=== PATIENT | male | born 1940 | race Caucasian/White ===

== ENCOUNTER 2017-05-23 07:08 | Day surgery (SDC) | payer OTHER ==
[2017-05-23] MEDS ORDERED: diphenhydrAMINE 25 MG CAP PO ONE ×2 (07:12→07:28)
[2017-05-23] MEDS ORDERED: FAMOTIDINE 20 MG TAB PO ONE (07:12)
[2017-05-23] MEDS ORDERED: NS 1,000 ML IV ONE (07:12)
[2017-05-23] MEDS ORDERED: ASPIRIN EC 325 MG TAB PO ONE ×2 (07:12→07:28)
[2017-05-23] MEDS ORDERED: DIAZEPAM 5 MG TAB PO ONE (07:12)
[2017-05-23] MEDS ORDERED: DIAZEPAM 5 MG TAB ONE (07:28)
[2017-05-23] MEDS ORDERED: FAMOTIDINE 20 MG TAB ONE (07:28)
--- NOTE | 2017-05-23 07:33 | CPEKG ---
Heart Rate: 64 RR Interval: 938 P-R Interval: 156 QRSD Interval: 98 QT Interval: 428 QTC Interval: 442 P Hansen: 84 QRS Hansen: -40 T Wave Hansen: 62 EKG Severity - ABNORMAL ECG - EKG Impression: SINUS RHYTHM EKG Impression: LEFT AXIS DEVIATION EKG Impression: LOW VOLTAGE IN FRONTAL LEADS Electronically Signed By: Sesar Lipscomb 24-May-2017 12:05:16
[2017-05-23 07:53] LABS: % IMMATURE GRANULYOCYTES 0.2 % (0.0-1.1); ABSOLUTE IMMATURE GRANULOCYTES 0.01 10^3/uL (0.00-0.10); ADD DIFF? NO; ADD MORPH? NO; ADD SCAN? NO; ATYPICAL LYMPHOCYTE FLAG 10 (0-99); FRAGMENT RBC FLAG 0 (0-99); HEMATOCRIT 42.2 % (40.0-51.0); HEMOGLOBIN 13.8 g/dL (13.7-17.5); LEFT SHIFT FLG 0 (0-99); LIPEMIA HEMOLYSIS FLAG 80 (0-99); MEAN CELL HEMOGLOBIN 30.6 pg (27.9-34.1); MEAN CELL HEMOGLOBIN CONCENTR. 32.7 g/dL (32.4-36.7); MEAN CELL VOLUME 93.6 fL (81.5-99.8); MEAN PLATELET VOLUME 9.9 fL (8.7-11.7); PLATELET CLUMPS FLAG 0 (0-99); PLATELET COUNT 184 10^3/uL (150-400); RED BLOOD CELL COUNT 4.51 10^6/uL (4.40-6.38); RED CELL DISTRIBUTION WIDTH 14.4 % (11.5-15.2)
[2017-05-23 07:57] LABS: INR 1.15 (0.83-1.16); PROTIME(PATIENT) 14.6 SEC (12.0-15.0)
[2017-05-23 07:59] LABS: ANION GAP 11 mEq/L (8-16); CALCIUM 9.2 mg/dL (8.5-10.4); CARBON DIOXIDE 23 mEq/l (22-31); CHLORIDE 111 mEq/L (97-110); CHOLESTEROL 130 mg/dL (140-220); CHOLESTEROL/HDL RATIO 1.91 RATIO (1.00-4.97); CREATININE 0.9 mg/dL (0.7-1.3); GLOMERULAR FILTRATION RATE > 60; GLUCOSE 96 mg/dL (70-100); HIGH DENSITY LIPOPROTEIN 68 mg/dL (40-65); LDL/HDL RATIO 0.75 RATIO (1.00-3.64); LOW DENSITY LIPOPROTEIN 51 mg/dL (80-100); MAGNESIUM 1.8 mg/dL (1.6-2.3); NON-HIGH DENSITY LIPOPROTEIN 62 mg/dL (90-129); POTASSIUM 3.9 mEq/L (3.5-5.2); SODIUM 145 mEq/L (134-144); TRIGLYCERIDE 58 mg/dL (40-150); VERY LOW DENSITY LIPOPROTEINS 11 mg/dL (8-25)
[2017-05-23] MEDS ORDERED: MIDAZOLAM 2 MG/2 ML VIAL ONE (08:20)
[2017-05-23] MEDS ORDERED: LIDOCAINE 1% 300 MG/30 ML SDV ONE (08:20)
[2017-05-23] MEDS ORDERED: fentaNYL 100 MCG/2 ML INJ ONE (08:20)
[2017-05-23] MEDS ORDERED: IOPAMIDOL (ISOVUE-370) 150 ML BTL IV ONE (08:20)
--- NOTE | 2017-05-23 09:47 | PDDXCAT ---
Diagnostic Cath Note - . Date: 05/23/17 Payment Analyst: Ruel Indication: Serial noninvasive testing w progressively worsening abnormalities - Procedure Access: right groin Procedure: left heart catheterization, coronary angiography, left ventriculogram - Materials Left Heart Cath size: 6F Left Heart Cath materials: standard multipack (JL4, JR4, pigtail) - Findings-Left Heart Catheterization LM: short, trifurcation into the LAD, ramus, and LCX vessels. No luminal irregularities were noted. LAD: Medium to large diameter vessel. Small diagonals (2) with diffuse disease just distal D2 to the apex. There are a minimum of 4 lesions up to 60% stenotic in this region. All lesions are "hinge points" with tortuosity that was noted. Lesions are located in relatively small diameter vessel. LCX: Codominant vessel with very small OM1/2 and equal magnitude OM3/4 which supply in the PDA/FRANK territory. No luminial irregularities were noted. RCA: Medium sized vessel with widely patent proximal stented vessel. Distal supply to the PDA (as well as co-supply from the LCX). No luminal irregularities were noted. Ramus: Small caliber vessel without appreciable luminal irregularites EDP: 18 mm Hg LVEF: 60-65% Wall motion: Normal wall motion Complications: None were appreciated. 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 There were serial lesions to the distal LAD involving hinge points with tortuosity. Lesions were (a) in small caliber vessel and (b) 60% occlusive. In speaking with , there was a tremendously stressful situation that led to the symptoms that were noted. No revisitation of symptoms since the stressors have been aleviated. Plan: Medical management to continue as at present. Blood pressure has been well controlled without therapy. ASA and statins to continue as at present. Will have patient follow up with outpatient cardiology in 7-10 days for discussion on symptoms and further medical therapy (if needed). was in agreement with these plans. Intervention: none
== END 2017-05-23 13:55 | disposition home or self-care (01) ==
LOC: FCATH 07:08
PROVIDERS: ATTEND Internal Medicine Cardiovascular Disease
DX: I25.10 Atherosclerotic heart disease of native coronary artery without angina pectoris (principal); Z95.5 Presence of coronary angioplasty implant and graft; I10 Essential (primary) hypertension; E78.5 Hyperlipidemia, unspecified
CPT/HCPCS: C1760; J1644; J2250; J3010; Q9967